=== PATIENT | male | born 1945 | race Caucasian/White ===

== ENCOUNTER 2021-10-14 13:38 | Emergency (ER) | payer OTHER ==
[~2021-10-14] VITALS: Ht 188 cm; Wt 104.3 kg
[2021-10-14] MEDS ORDERED: ALLO300 (14:53)
[2021-10-14 15:35] LABS: BASOPHILS ABSOLUTE AUTO 0.07 K/mm3 (0.00-0.23); BASOPHILS PERCENT AUTO 1 % (0-2); EOSINOPHILS ABSOLUTE AUTO 0.05 K/mm3 (0.00-0.68); EOSINOPHILS PERCENT AUTO 1 % (0-6); Hematocrit 45.6 % (37.0-53.0); Hemoglobin 15.7 g/dL (13.5-17.5); IMMATURE GRAN ABSOLUTE AUTO 0.06 K/mm3 (0.00-0.10); IMMATURE GRAN PERCENT AUTO 1 % (0-1); LYMPHOCYTES ABSOLUTE AUTO 0.76 K/mm3 (0.84-5.20); LYMPHOCYTES PERCENT AUTO 7 % (21-46); MONOCYTES ABSOLUTE AUTO 0.53 K/mm3 (0.16-1.47); MONOCYTES PERCENT AUTO 5 % (4-13); Mean Corpuscular HGB 29.7 pg (26.0-34.0); Mean Corpuscular HGB Conc 34.4 g/dL (31.5-36.5); Mean Corpuscular Volume 86 fL (80-100); Mean Platelet Volume 9.6 fL (9.1-12.4); NEUTROPHILS ABSOLUTE AUTO 9.53 K/mm3 (1.96-9.15); NEUTROPHILS PERCENT AUTO 87 % (41-73); Platelet Count 167 K/mm3 (150-400); RDW Coefficient Variation 12.8 % (11.7-14.2); Red Blood Cell Count 5.28 M/mm3 (4.30-5.90)
[2021-10-14 15:52] LABS: Bun/Creatinine Ratio 13.9 (12.0-20.0); Calcium, Blood 9.4 mg/dL (8.5-10.1); Creatinine, Blood 0.94 mg/dL (0.60-1.20); Potassium, Blood 3.7 mmol/L (3.5-5.5)
[2021-10-14] MEDS ORDERED: ACET500 PO (17:44)
== END 2021-10-14 22:34 | disposition home or self-care (01) ==
LOC: ER 13:38
PROVIDERS: Student in an Organized Health Care Education/Training Program
DX: S06.2X0A Diffuse traumatic brain injury without loss of consciousness, initial encounter (principal); S42.031A Displaced fracture of lateral end of right clavicle, initial encounter for closed fracture; S22.019A Unspecified fracture of first thoracic vertebra, initial encounter for closed fracture; V28.0XXA Motorcycle driver injured in noncollision transport accident in nontraffic accident, initial encounter
CPT/HCPCS: 70450; 72125; 73030; 80048; 85025; A9270